=== PATIENT | male | born 1960 | race Caucasian/White ===

== ENCOUNTER → 2023-12-25 | Outpatient (CLI) | payer BC ==
--- NOTE | 2023-12-26 17:42 | US ---
EXAMINATION TYPE: US abdomen complete DATE OF EXAM: 12/25/2023 COMPARISON: NONE CLINICAL INDICATION: Male, 63 years old with history of R10.11 RIGHT UPPER QUADRANT PAIN; RUQ pain. TECHNIQUE: Multiple sonographic images of the abdomen are obtained. FINDINGS: EXAM MEASUREMENTS: Liver Length: 18.0 cm Gallbladder: Unable to visualize CBD: Obscured Spleen: 11.5 cm Right Kidney: 13.2 x 6.7 x 5.0 cm Left Kidney: 13.0 x 6.2 x 6.8 cm [employer]GE[employer] NOTES: *Exam is extremely limited and technically difficult due to gas and patient body h abitus. Pancreas: Obscured Liver: Measures enlarged. Increased echogenicity and attenuation. Limitations. Gallbladder: Unable to visualize by ultrasound. Evidence for sonographic Sanchez's sign: No CBD: Obscured Spleen: No abnormalities seen. Right Kidney: Slightly prominent in size. No hydronephrosis or masses seen Left Kidney: Slightly prominent in size. No hydronephrosis or masses seen Upper IVC: Appears wnl Abd Aorta: *Proximal segment appears ectatic measuring 2.7 cm AP. Mid-distal aorta and iliacs were o bscured. IMPRESSION: 1. Significant exam limitations. Unable to adequately assess the pancreas, gallbladder, or bile duct. 2. Mild hepatomegaly at 18.0 cm with at least moderate hepatic steatosis.
== END | disposition home or self-care (01) ==
LOC: RADUSWWP 06:55
PROVIDERS: ATTEND Family Medicine
DX: K76.0 Fatty (change of) liver, not elsewhere classified (principal); R16.0 Hepatomegaly, not elsewhere classified; R11.2 Nausea with vomiting, unspecified
CPT/HCPCS: 76700

== ENCOUNTER 2023-12-26 16:12 | Observation (INO) | payer BC ==
--- NOTE | 2023-12-26 16:55 | ED ---
General Adult HPI - General Chief complaint: Abdominal Pain Stated complaint: Abd pain Time Seen by Provider: 12/26/23 16:41 Source: patient, RN notes reviewed Mode of arrival: ambulatory Limitations: no limitations - History of Present Illness Initial comments: 63-year-old male with a past medical history of hypertension presents to the emergency department for evaluation of right upper quadrant abdominal pain. He states that this has been on and off for the past 5 months has become more consistent over the past 24 hours. He states that he has had 5 episodes of pain ranging in duration from 1 to 4 hours over the past 24 hours. He reports that the pain is mostly in his right upper quadrant also radiates to his mid abdomen and back. He states that he has seen his primary care provider for this and there is concern for gallstones. He had an outpatient ultrasound performed yesterday that he does not have the results yet. He does admit to nausea with vomiting, diarrhea. Denies fever, chills. Denies alcohol consumption. He is on blood thinners for history of A-fib - Related Data Home Medications Medication Instructions Recorded Confirmed Apixaban [Eliquis] 5 mg PO BID 12/26/23 12/26/23 Metoprolol Succinate (ER) [Toprol 50 mg PO BID 12/26/23 12/26/23 Xl] [place]-3/Dha/Epa/Fish Oil [Fish Oil 1 cap PO BID 12/26/23 12/26/23 1,000 mg Softgel] ramipriL [Altace] 2.5 mg PO HS 12/26/23 12/26/23 Allergies Allergy/AdvReac Type Severity Reaction Status Date / Time No Known Allergies Allergy Verified 12/26/23 19:38 Review of Systems ROS Statement: Those systems with pertinent positive or pertinent negative responses have been documented in the HPI. ROS Other: All systems not noted in ROS Statement are negative. Past Medical History Past Medical History: Hypertension History of Any Multi-Drug Resistant Organisms: None Reported Past Surgical History: Ablation Past Psychological History: No Psychological Hx Reported Smoking Status: Never smoker Past Alcohol Use History: None Reported Past Drug Use History: None Reported General Exam Limitations: no limitations General appearance: alert, in no apparent distress Head exam: Present: atraumatic, normocephalic, normal inspection Eye exam: Present: normal appearance, PERRL, EOMI. Absent: scleral icterus, conjunctival injection, periorbital swelling Respiratory exam: Present: normal lung sounds bilaterally. Absent: respiratory distress, wheezes, rales, rhonchi, stridor Cardiovascular Exam: Present: regular rate, normal rhythm, normal heart sounds. Absent: systolic murmur, diastolic murmur, rubs, gallop, clicks GI/Abdominal exam: Present: soft, tenderness (RUQ, epigastric), normal bowel sounds. Absent: distended, guarding, rebound, rigid Extremities exam: Present: normal inspection, full ROM, normal capillary refill. Absent: tenderness, pedal edema, joint swelling, calf tenderness Neurological exam: Present: alert, oriented X3 Psychiatric exam: Present: normal affect, normal mood Skin exam: Present: warm, dry, intact, normal color. Absent: rash Course Vital Signs 12/26/23 16:18 Temperature 98.5 F Pulse Rate 87 Respiratory 18 Rate Blood Pressure 195/86 O2 Sat by Pulse 95 Oximetry Medical Decision Making - Medical Decision Making Was pt. sent in by a medical professional or institution (, PA, EQUIPMENT TESTER, urgent care, hospital, or shelter...) When possible be specific @ -No Did you speak to anyone other than the patient for history (EMS, parent, family, police, friend...)? What history was obtained from this source @ -No Did you review nursing and triage notes (agree or disagree)? Why? @ -I reviewed and agree with nursing and triage notes Were old charts reviewed (outside hosp., previous admission, EMS record, old EKG, old radiological studies, urgent care reports/EKG's, shelter records)? Report findings @ -Outpatient ultrasound from yesterday reviewed. Significant limitation due to body habitus Differential Diagnosis (chest pain, altered mental status, abdominal pain women, abdominal pain men, vaginal bleeding, weakness, fever, dyspnea, syncope, headache, dizziness, GI bleed, back pain, seizure, CVA, palpatations, mental health, musculoskeletal)? @ -Differential Abdominal Pain Men: Appendicitis, cholecystitis, diverticulosis, ischemic bowel, pancreatitis, hepatitis, UTI, gastroenteritis, AAA, incarcerated hernia, bowel obstruction, constipation, inflammatory bowel, hepatitis, peptic ulcer disease, splenic infarction, perforated viscus, testicular torsion, this is not meant to be an all-inclusive list EKG interpreted by me (3pts min.). @ -EKG at 1824. Rate 84, MO 194, QRS 102, QTQTc [id number] X-rays interpreted by me (1pt min.). @ -None done CT interpreted by me (1pt min.). @ -CT abdomen pelvis shows acute pancreatitis, moderate without complication U/S interpreted by me (1pt. min.). @ -None done What testing was considered but not performed or refused? (CT, X-rays, U/S, labs)? Why? @ -None What meds were considered but not given or refused? Why? @ -None Did you discuss the management of the patient with other professionals (professionals i.e. DrParth, PA, EQUIPMENT TESTER, lab, RT, psych nurse, clinical social work aide, machinery mechanic, teacher, chief school finance officer, case reviewer)? Give summary @ -Case discussed with [facility] who is accepting of the admission Was smoking cessation discussed for >3mins.? @ -No Was critical care preformed (if so, how long)? @ -No Were there social determinants of health that impacted care today? How? (Homelessness, low income, unemployed, alcoholism, drug addiction, transportation, low edu. Level, literacy, decrease access to med. care, care home, rehab)? @ -No Was there de-escalation of care discussed even if they declined (Discuss DNR or withdrawal of care, Hospice)? DNR status @ -No What co-morbidities impacted this encounter? (DM, HTN, Smoking, COPD, CAD, Cancer, CVA, ARF, Chemo, Hep., AIDS, mental health diagnosis, sleep apnea, morbid obesity)? @ -None Was patient admitted / discharged? Hospital course, mention meds given and route, prescriptions, significant lab abnormalities, going to OR and other pertinent info. @ -Admitted. Patient presented to the emergency department for evaluation of right upper quadrant, epigastric abdominal pain. He states that for the past 24 hours this has gotten significantly worse. Laboratory studies obtained. Patient has significant elevation in lipase, amylase, AST, ALT. Bilirubin 4.0. CT scan performed shows acute pancreatitis, moderate without complication. Patient provided fluids in ED along with medication for pain and nausea control. Patient will be admitted for acute pancreatitis with GI consultation. Case discussed with [facility] who is accepting of the admission. Case discussed with Dr. Boothe Undiagnosed new problem with uncertain prognosis? @ -No Drug Therapy requiring intensive monitoring for toxicity (Heparin, Nitro, Insulin, Cardizem)? @ -No Were any procedures done? @ -No Diagnosis/symptom? @ -Acute pancreatitis Acute, or Chronic, or Acute on Chronic? @ -acute Uncomplicated (without systemic symptoms) or Complicated (systemic symptoms)? @ -uncomplicated Side effects of treatment? @ -No Exacerbation, Progression, or Severe Exacerbation? @ -No Poses a threat to life or bodily function? How? (Chest pain, [place], [place], pneumonia, PE, COPD, DKA, ARF, appy, cholecystitis, CVA, Diverticulitis, Homicidal, Suicidal, threat to staff... and all critical care pts) @ -No - Lab Data Result diagrams: 12/26/23 17:50 12/26/23 17:50 Lab Results 12/26/23 12/26/23 12/26/23 Range/Units 17:50 17:50 17:53 WBC 7.8 (3.8-10.6) k/uL RBC 5.17 (4.30-5.90) m/uL Hgb 15.5 (13.0-17.5) gm/dL Hct 48.6 (39.0-53.0) % MCV 94.0 (80.0-100.0) fL MCH 30.0 (25.0-35.0) pg MCHC 31.9 (31.0-37.0) g/dL RDW 13.2 (11.5-15.5) % Plt Count 182 (150-450) k/uL MPV 7.1 Neutrophils % 79 % Lymphocytes % 14 % Monocytes % 6 % Eosinophils % 1 % Basophils % 0 % Neutrophils # 6.1 (1.3-7.7) k/uL Lymphocytes # 1.1 (1.0-4.8) k/uL Monocytes # 0.5 (0-1.0) k/uL Eosinophils # 0.1 (0-0.7) k/uL Basophils # 0.0 (0-0.2) k/uL Sodium 137 (137-145) mmol/L Potassium 4.8 (3.5-5.1) mmol/L Chloride 103 (98-107) mmol/L Carbon Dioxide 26 (22-30) mmol/L Anion Gap 8 mmol/L BUN 19 (9-20) mg/dL Creatinine 0.97 (0.66-1.25) mg/dL Est GFR (CKD-EPI)AfAm >90 (>60 ml/min/1.73 sqM) Est GFR (CKD-EPI)NonAf 84 (>60 ml/min/1.73 sqM) Glucose 176 H (74-99) mg/dL Calcium 9.5 (8.4-10.2) mg/dL Total Bilirubin 4.0 H (0.2-1.3) mg/dL AST 744 H (17-59) U/L ALT 795 H (4-49) U/L Alkaline Phosphatase 120 (38-126) U/L Total Protein 7.7 (6.3-8.2) g/dL Albumin 4.6 (3.5-5.0) g/dL Amylase 3348 H* (30-110) U/L Lipase >10433 H (23-300) U/L Urine Color Yellow Urine Appearance Clear (Clear) Urine pH 5.5 (5.0-8.0) Ur Specific [place] 1.012 (1.001-1.035) Urine Protein Negative (Negative) Urine Glucose (UA) Negative (Negative) Urine Ketones Negative (Negative) Urine Blood Negative (Negative) Urine Nitrite Negative (Negative) Urine Bilirubin 1+ H (Negative) Urine Urobilinogen <2.0 (<2.0) mg/dL Ur Leukocyte Esterase Negative (Negative) Disposition Clinical Impression: Pancreatitis Disposition: ADMITTED IP TO THIS [facility] Condition: Stable Is patient prescribed a controlled substance at d/c from ED?: No Referrals: Sukhwinder Pettit DO [Primary Care Provider] - 1-2 days
[2023-12-26] MEDS: KETOROLAC 15 MG/ML 1 ML VIAL IVP STA (17:43)
[2023-12-26] MEDS: MORPHINE SULFATE 4 MG/ML SYRINGE IVP STA (17:44)
[2023-12-26] MEDS: ONDANSETRON 4 MG/2 ML VIAL IVP STA (17:47)
[2023-12-26] MEDS: SODIUM CHLORIDE 0.9% 1,000 ML IV ONE ×2 (17:47→21:17)
[2023-12-26 18:01] LABS: Basophils % (A) 0 %; Eosinophils # (A) 0.1 k/uL (0-0.7); Eosinophils % (A) 1 %; HCT 48.6 % (39.0-53.0); HGB 15.5 gm/dL (13.0-17.5); Lymphocytes # (A) 1.1 k/uL (1.0-4.8); Lymphocytes % (A) 14 %; MCHC 31.9 g/dL (31.0-37.0); Mean Platelet Volume 7.1; Monocytes # (A) 0.5 k/uL (0-1.0); Monocytes % (A) 6 %; Neutrophils # (A) 6.1 k/uL (1.3-7.7); Neutrophils % (A) 79 %; Platelet Count 182 k/uL (150-450); RBC 5.17 m/uL (4.30-5.90); RDW 13.2 % (11.5-15.5); WBC 7.8 k/uL (3.8-10.6)
[2023-12-26 18:03] LABS: Appearance,Urine Clear (Clear); Bilirubin,Urine 1+ (Negative); Blood,Urine Negative (Negative); Color,Urine Yellow; Glucose,Urine (UA) Negative (Negative); Ketones,Urine Negative (Negative); Leukocyte Esterase,Urine Negative (Negative); Nitrite,Urine Negative (Negative); PH, Urine 5.5 (5.0-8.0); Protein,Urine Negative (Negative); Specific Gravity,Urine 1.012 (1.001-1.035); Urobilinogen,Urine <2.0 mg/dL (<2.0)
[2023-12-26 18:11] LABS: African American GFR (CKD) >90 (>60 ml/min/1.73 sqM); Albumin 4.6 g/dL (3.5-5.0); Alkaline Phosphatase 120 U/L (38-126); Anion Gap 8 mmol/L; Blood Urea Nitrogen 19 mg/dL (9-20); Calcium 9.5 mg/dL (8.4-10.2); Carbon Dioxide 26 mmol/L (22-30); Chloride 103 mmol/L (98-107); Glucose 176 mg/dL (74-99); Non-African American GFR(CKD) 84 (>60 ml/min/1.73 sqM); Potassium 4.8 mmol/L (3.5-5.1); Sodium 137 mmol/L (137-145); Total Protein 7.7 g/dL (6.3-8.2)
[2023-12-26 18:44] LABS: ALT 795 U/L (4-49); AST 744 U/L (17-59); Lipase >20000 U/L (23-300)
[2023-12-26 18:46] LABS: Amylase 3348 U/L (30-110)
--- NOTE | 2023-12-26 19:00 | CT ---
EXAMINATION TYPE: CT abdomen pelvis w con DATE OF EXAM: 12/26/2023 HISTORY: generalized abd pain. CT DLP: 4295 mGycm, Automated Exposure Control for Dose Reduction was Utilized. CONTRAST: CT scan of the abdomen and pelvis is performed with oral and with IV Contrast, patient inje cted with 100ml mL of Isovue 300. COMPARISON: None FINDINGS: LUNG BASES: Right lower lobe 7.5 cm solid pulmonary nodule noted, which can be further characterized with six-month follow-up CT chest. Coronary calcifications noted. LIVER: No significant abnormality is appreciated. BILIARY: No intrahepatic or extrahepatic ductal dilation. Gallbladder has normal appearance. No calci fied cholelithiasis. PANCREAS: There is moderate indistinctness and inflammatory change throughout and surrounding the ent vicky pancreas parenchyma and bilateral anterior pararenal space and associated significant mural thick ening and indistinctness of the second/third portions of the duodenum. The pancreatic parenchyma appe ars to contrast enhance homogeneously. There are no abnormal fluid or gas collections. The portal spl enic venous system is widely patent. There are no pancreatic calcifications. There is no pancreatic d uctal dilation. SPLEEN: No significant abnormality is seen. ADRENALS: No significant abnormality is seen. KIDNEYS: No significant abnormality is seen. BOWEL: No bowel dilation or inflammatory change other than the duodenal findings detailed above. ANTERIOR ABDOMINAL PELVIC WALL: There is a 7 cm midline omental herniation in the supraumbilical posi tion; no bowel loops within. PROSTATE/SEMINAL VESICLES: No gross abnormality seen. LYMPH NODES: Borderline dilated lymph nodes in the gastrohepatic and periportal positions. No pelvic adenopathy. OSSEOUS STRUCTURES: No significant abnormality is seen. OTHER: No significant additional abnormality is seen. IMPRESSION: Acute pancreatitis, moderate degree with no pancreatitis complications. Eventual imaging follow-up to ensure resolution of the findings. Right lower lobe 7.5 mm pulmonary nodule. Coronary calcifications.
[2023-12-26] MEDS ORDERED: ACETAMINOPHEN TAB 325 MG TAB PO PRN (19:28)
[2023-12-26] MEDS ORDERED: IBUPROFEN 400 MG TAB PO PRN (19:28)
[2023-12-26] MEDS ORDERED: NALOXONE 0.4 MG/ML 1 ML VIAL IV PRN (19:28)
[2023-12-26] MEDS: HYDROmorphone 1 MG/ML 1 ML SYRINGE IVP STA (19:49)
[2023-12-26] MEDS: SODIUM CHLORIDE 0.9% 1,000 ML IV SCH (21:18)
[2023-12-26] MEDS: METOPROLOL SUCCINATE (ER) 50 MG TAB.ER.24H PO SCH (21:24)
[2023-12-26] MEDS: APIXABAN 5 MG TAB PO SCH (21:25)
[2023-12-26] MEDS: lisinopriL 10 MG TAB PO SCH (21:26)
[2023-12-26] MEDS: KETOROLAC 15 MG/ML 1 ML VIAL IVP PRN (21:28)
[2023-12-26] MEDS: HYDROmorphone 0.5 MG/0.5 ML SYRINGE IVP PRN (23:12)
--- NOTE | 2023-12-27 03:33 | P.HPIM ---
History of Present Illness H&P Date: 12/26/23 Chief Complaint: Abdominal pain 64-year-old male with hypertension, history of A-fib status post ablation Patient coming in for evaluation of severe abdominal pain he reports occasional episodes of abdominal pain over the past 5 to 6 months which she describes as episodes of short-lived pain that happens all of a sudden epigastric in nature then goes away after an hour or so and then with take weeks or sometimes months before he gets another episode. However since last night he had a prolonged episodes of abdominal pain lasted for 5 to 6 hours until he fell asleep he described the pain as severe epigastric radiating to the right upper quadrant and to his back associated with retching. Then he woke up this morning and had another episodes of that pain that lasted for couple hours then had another episodes in the afternoon and then after the third or fourth episode around 230-3 PM for which she decided that he is coming to the hospital for evaluation these episodes are not associated with any fevers chills diarrhea however he does report nausea and vomiting but no bleeding He denies any history of pancreatitis denies any alcohol abuse denies any history of gallstones. 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 All other systems were reviewed and are negative on exam Constitutional: No acute distress, conversant, pleasant Eyes: HENT of scleral jaundice, moist conjunctiva, Pupils equal round reactive to light ENMT: NC/AT Oropharynx clear, no erythema, or exudates Neck: Supple, no masses, or JVD No carotid bruits No thyromegaly Lungs: Clear to auscultation Clear to percussion Normal respiratory effort, no accessory muscle use Cardiovascular: Heart regular in rate and rhythm, No murmurs, gallops, or rubs No peripheral edema Abdominal: Soft Tenderness to deep palpation of the epigastric and right upper quadrant, no guarding, rebound or rigidity Abdomen moving with respiration Normoactive bowel sounds Extremities: No digital cyanosis No clubbing Pedal pulses intact and symmetrical Radial pulses intact and symmetrical No calf tenderness Psychiatric: Alert and oriented to person, place and time Appropriate affect fair judgement Neuro Muscles Strength 5/5 in all 4 extremities Sensation to light touch grossly present throughout Cranial nerves II-XII grossly intact Past Medical History Past Medical History: Atrial Fibrillation, Deep Vein Thrombosis (DVT), Hypertension, Pulmonary Embolus (PE), Sleep Apnea/CPAP/BIPAP History of Any Multi-Drug Resistant Organisms: None Reported Past Surgical History: Ablation Additional Past Surgical History / Comment(s): fistula repair Past Anesthesia/Blood Transfusion Reactions: No Reported Reaction Past Psychological History: No Psychological Hx Reported Smoking Status: Never smoker Past Alcohol Use History: None Reported Past Drug Use History: None Reported Medications and Allergies Home Medications Medication Instructions Recorded Confirmed Type Apixaban [Eliquis] 5 mg PO BID 12/26/23 12/26/23 History Metoprolol Succinate (ER) [Toprol 50 mg PO BID 12/26/23 12/26/23 History Xl] [place]-3/Dha/Epa/Fish Oil [Fish Oil 1 cap PO BID 12/26/23 12/26/23 History 1,000 mg Softgel] ramipriL [Altace] 2.5 mg PO HS 12/26/23 12/26/23 History Allergies Allergy/AdvReac Type Severity Reaction Status Date / Time No Known Allergies Allergy Verified 12/26/23 19:38 Physical Exam Vitals: Vital Signs Temp Pulse Pulse Resp BP BP Pulse Ox 12/27/23 02:27 97.8 F 69 16 152/89 97 12/26/23 22:15 79 18 148/88 95 12/26/23 21:12 81 18 159/102 96 12/26/23 16:18 98.5 F 87 18 195/86 95 Intake and Output 12/26/23 12/26/23 12/27/23 14:59 22:59 06:59 Other: Weight 170.097 kg Results CBC & Chem 7: 12/26/23 17:50 12/26/23 17:50 Labs: Abnormal Lab Results - Last 24 Hours (Table) 12/26/23 12/26/23 Range/Units 17:50 17:53 Glucose 176 H (74-99) mg/dL Total Bilirubin 4.0 H (0.2-1.3) mg/dL AST 744 H (17-59) U/L ALT 795 H (4-49) U/L Amylase 3348 H* (30-110) U/L Lipase >91437 H (23-300) U/L Urine Bilirubin 1+ H (Negative) Assessment and Plan Assessment: 64-year-old male with hypertension history of venous thromboembolism on Eliquis coming in for evaluation of severe abdominal pain epigastric radiating to the right upper quadrant and his back blood work revealed elevated lipase I discussed case with ED doctor and accepted the admission for acute pancreatitis and elevated liver enzymes with anticipated length of stay more than 2 midnights Acute pancreatitis Elevated liver enzymes suspected passing a stone GI consultation for possible MRCP/ERCP N.p.o. Aggressive IV fluid hydration status post 2 L boluses continue with 200 cc/h of normal saline Pain control with Dilaudid 1 mg every 3 hours as needed Zofran 4 mg IV push as needed every 8 hours In rare occasions ramipril could be a cause of pancreatitis which will be held for this admission Lipase more than 20,000 Total bilirubin 4 AST 744 [address] scan of the abdomen showed acute pancreatitis moderate degree with no pancreatitis complications, History of A-fib status post ablation History of venous thromboembolism recurrent Continue with Eliquis 5 mg twice daily Hypertension Continue with metoprolol Ramipril on hold Incidental finding of right lower lobe 7.5 mm pulmonary nodule Consider outpatient follow-up with pulmonary White count 7.8 hemoglobin 15.5 Sodium 137 potassium 4.8 BUN 20 creatinine 0.9 Full code DVT prophylaxis on Eliquis for history of venous thromboembolism
[2023-12-27 06:52] LABS: ALT 669 U/L (4-49); AST 440 U/L (17-59); African American GFR (CKD) >90 (>60 ml/min/1.73 sqM); Albumin 3.5 g/dL (3.5-5.0); Albumin/Globulin Ratio 1.4; Alkaline Phosphatase 95 U/L (38-126); Anion Gap 4 mmol/L; Blood Urea Nitrogen 19 mg/dL (9-20); Calcium 8.5 mg/dL (8.4-10.2); Carbon Dioxide 29 mmol/L (22-30); Chloride 106 mmol/L (98-107); Globulin 2.5 g/dL; Glucose 126 mg/dL (74-99); Non-African American GFR(CKD) >90 (>60 ml/min/1.73 sqM); Potassium 4.3 mmol/L (3.5-5.1); Sodium 139 mmol/L (137-145); Total Bilirubin 1.7 mg/dL (0.2-1.3)
[2023-12-27 07:44] LABS: Amylase 1140 U/L (30-110); Lipase 8575 U/L (23-300)
[2023-12-27 09:08] LABS: Basophils # (A) 0.04 X 10*3/uL (0.00-0.10); Basophils % (A) 0.5 %; Eosinophils # (A) 0.11 X 10*3/uL (0.04-0.35); Eosinophils % (A) 1.4 %; HCT 40.6 % (39.6-50.0); HGB 13.3 g/dL (13.0-17.0); Lymphocytes # (A) 1.34 X 10*3/uL (0.90-5.00); MCH 31.1 pg (27.0-32.0); MCHC 32.8 g/dL (32.0-37.0); MCV 94.9 FL (80.0-97.0); Mean Platelet Volume 9.6 FL (9.5-12.2); Monocytes # (A) 0.55 X 10*3/uL (0.20-1.00); NRBC Per 100 WBC 0 X 10*3/uL (0.00-0.01); Neutrophils # (A) 5.82 X 10*3/uL (1.80-7.70); Neutrophils % (A) 73.6 %; Platelet Count 139 X 10*3/uL (140-440); RBC 4.28 X 10*6/uL (4.40-5.60); RDW 13.2 % (11.5-14.5)
--- NOTE | 2023-12-27 10:56 | P.PN ---
Subjective Progress Note Date: 12/27/23 No new complaints today. Pain is well-controlled. Plans for MRCP. Gen: In NAD, non-toxic HEENT: normocephalic, atraumatic, hearing acuity is intant, mucous membranes moist CVS: perfusing all extremities well, no pitting edema, Respiratory: symmetric chest expansion, no accessory muscle use, GI: soft, NTTP, ND, : no suprapubic tenderness, no CVA tenderness MSK/Derm: no rashes, cyanosis Neuro: CN II-XII intact, no motor weakness, Psych: cooperative, euthymic mood, judgment and insight is intact Hospital course: 64-year-old male with hypertension history of venous thromboembolism on Eliquis coming in for evaluation of severe abdominal pain epigastric radiating to the right upper quadrant and his back. White count 7.8 hemoglobin 15.5 Sodium 137 potassium 4.8 BUN 20 creatinine 0.9 Lipase more than 20,000 Total bilirubin 4 AST 744 [address] scan of the abdomen showed acute pancreatitis moderate degree with no pancreatitis complications, Assessment/plan: Acute pancreatitis Elevated liver enzymes suspected passing a stone GI consultation MRCP/ERCP N.p.o. Aggressive IV fluid hydration status post 2 L boluses continue with 200 cc/h of normal saline Pain control with Dilaudid 1 mg every 3 hours as needed Zofran 4 mg IV push as needed every 8 hours In rare occasions ramipril could be a cause of pancreatitis which will be held for this admission History of A-fib status post ablation History of venous thromboembolism recurrent Continue with Eliquis 5 mg twice daily Hypertension Continue with metoprolol Ramipril on hold Incidental finding of right lower lobe 7.5 mm pulmonary nodule Consider outpatient follow-up with pulmonary Full code DVT prophylaxis on Eliquis for history of venous thromboembolism Objective - Vital Signs Vital signs: Vital Signs Temp 98.4 F 12/27/23 07:09 Pulse 70 12/27/23 07:09 Resp 18 12/27/23 07:09 BP 142/80 12/27/23 07:09 Pulse Ox 95 12/27/23 07:09 FiO2 Intake & Output 12/26/23 12/27/23 12/27/23 18:59 06:59 18:59 Weight 170.097 kg 170.097 kg Other: # Voids 3 - Labs CBC & Chem 7: 12/27/23 03:42 12/27/23 03:42 Labs: Abnormal Lab Results - Last 24 Hours (Table) 12/26/23 12/26/23 12/27/23 Range/Units 17:50 17:53 03:42 RBC 4.28 L (4.40-5.60) X 10*6/uL Plt Count 139 L (140-440) X 10*3/uL Glucose 176 H (74-99) mg/dL Total Bilirubin 4.0 H (0.2-1.3) mg/dL AST 744 H (17-59) U/L ALT 795 H (4-49) U/L Total Protein (6.3-8.2) g/dL Amylase 3348 H* (30-110) U/L Lipase >63645 H (23-300) U/L Urine Bilirubin 1+ H (Negative) 12/27/23 12/27/23 Range/Units 03:42 06:13 RBC (4.40-5.60) X 10*6/uL Plt Count (140-440) X 10*3/uL Glucose 126 H (74-99) mg/dL Total Bilirubin 1.7 H (0.2-1.3) mg/dL AST 440 H (17-59) U/L ALT 669 H (4-49) U/L Total Protein 6.0 L (6.3-8.2) g/dL Amylase 1140 H* (30-110) U/L Lipase 8575 H (23-300) U/L Urine Bilirubin (Negative)
--- NOTE | 2023-12-27 11:39 | P.CONS ---
History of Present Illness - Reason for Consult Consult date: 12/27/23 Pancreatitis Requesting physician: Vidhya Lentz - Chief Complaint Abdominal pain - History of Present Illness This is a pleasant 63-year-old male who presented to the emergency department yesterday afternoon with complaints of abdominal pain mostly in the epigastric region and associated with nausea and vomiting. He has a past medical history including atrial fibrillation on Eliquis, obesity, and hypertension. He states pain started 2 nights ago lasted about 5 hours and then improved. Came back yesterday morning but again went away and then yesterday afternoon around 2 PM pain came back and was severe. He states that this has happened to him in the past and he has seen his primary care physician regarding it who had ordered an outpatient ultrasound thinking it could be related to the gallbladder. He denies any previous diagnosis of pancreatitis and no alcohol abuse. Blood work was completed with elevated amylase and lipase, 3348 and greater than 20,000 respectively, as well as elevated LFTs. He had a CT of the abdomen pelvis reporting pancreatic inflammation consistent with pancreatitis. No significant abnormality of the liver and no intrahepatic or extrahepatic ductal dilation gallbladder appeared normal. With no calcified cholelithiasis. Outpatient abdominal ultrasound nondiagnostic. Patient currently states abdominal pain is much better, he has no nausea or vomiting. States he feels like he has to have a bowel movement but he has been unable to go. He denies any fevers or chills, no shortness of breath or chest pain. He has been afebrile. Repeat labs today WBC 7.9 hemoglobin 13 platelet count 139,000 total bilirubin 1.7 AST 440 ALT 669 alkaline phosphatase 95 amylase 1140 lipase 8575 Review of Systems REVIEW OF SYSTEMS: CARDIOPULMONARY: No chest pain or shortness of breath. Gastrointestinal: Abdominal pain associated with nausea and vomiting. No hematemesis, coffee-ground emesis. No rectal bleeding, or melena. GENITOURINARY: No dysuria or hematuria. MUSCULOSKELETAL: Reports normal range of motion. SKIN: No rashes. No jaundice. ENDOCRINE: No chills, fevers. No excessive weight gain or loss. No polydipsia or polyuria. PSYCHIATRIC: Unremarkable. NEUROLOGY: No change in mental status. Denies dizziness, headache. ENT: Vision unremarkable. CONSTITUTIONAL: No recent weight loss. No fever, chills, night sweats. Past Medical History Past Medical History: Atrial Fibrillation, Deep Vein Thrombosis (DVT), Hypertension, Pulmonary Embolus (PE), Sleep Apnea/CPAP/BIPAP History of Any Multi-Drug Resistant Organisms: None Reported Past Surgical History: Ablation Additional Past Surgical History / Comment(s): fistula repair Past Anesthesia/Blood Transfusion Reactions: No Reported Reaction Past Psychological History: No Psychological Hx Reported Smoking Status: Never smoker Past Alcohol Use History: None Reported Past Drug Use History: None Reported Medications and Allergies Home Medications Medication Instructions Recorded Confirmed Type Apixaban [Eliquis] 5 mg PO BID 12/26/23 12/26/23 History Metoprolol Succinate (ER) [Toprol 50 mg PO BID 12/26/23 12/26/23 History Xl] [place]-3/Dha/Epa/Fish Oil [Fish Oil 1 cap PO BID 12/26/23 12/26/23 History 1,000 mg Softgel] ramipriL [Altace] 2.5 mg PO HS 12/26/23 12/26/23 History Allergies Allergy/AdvReac Type Severity Reaction Status Date / Time No Known Allergies Allergy Verified 12/26/23 19:38 Physical Exam Vitals: Vital Signs Temp Pulse Pulse Resp BP BP Pulse Ox 12/27/23 02:27 97.8 F 69 16 152/89 97 12/26/23 22:15 79 18 148/88 95 12/26/23 21:12 81 18 159/102 96 12/26/23 16:18 98.5 F 87 18 195/86 95 Intake and Output 12/26/23 12/27/23 12/27/23 22:59 06:59 14:59 Other: # Voids 3 Weight 170.097 kg General appearance: The patient is alert, oriented, appears in no acute distress. HET: Head is normocephalic and atraumatic. Conjunctiva pink. Sclera anicteric. Neck: Supple without lymphadenopathy. Trachea midline. Heart: Regular. Lungs: Equal expansion, normal respiratory effort. Abdomen: Soft, mild epigastric tenderness, nondistended. Morbidly obese. Skin: No rashes. No jaundice. Extremities: Normal skin color and turgor. No pedal edema. Neurological: No focal deficits. Alert and oriented x3. Results CBC & Chem 7: 12/27/23 03:42 12/27/23 03:42 Labs: Abnormal Lab Results - Last 24 Hours (Table) 12/26/23 12/26/23 12/27/23 Range/Units 17:50 17:53 03:42 Glucose 176 H 126 H (74-99) mg/dL Total Bilirubin 4.0 H 1.7 H (0.2-1.3) mg/dL AST 744 H 440 H (17-59) U/L ALT 795 H 669 H (4-49) U/L Total Protein 6.0 L (6.3-8.2) g/dL Amylase 3348 H* (30-110) U/L Lipase >18413 H (23-300) U/L Urine Bilirubin 1+ H (Negative) Comments: CT abdomen pelvis with contrast reports acute pancreatitis, moderate degree with no pancreatitis complications. Eventual imaging following up to ensure resolution of findings. Right lower lobe 7.5 mm pulmonary nodule. Coronary calcification. Outpatient abdominal ultrasound 12/25/2023 reports significant exam limitations. Unable to adequately assess the pancreas, gallbladder or bile duct. Mild hepatomegaly at 18.0 cm with at least moderate hepatic steatosis. Assessment and Plan (1) Acute pancreatitis Narrative/Plan: 63-year-old male presenting with abdominal pain that has been intermittent ongoing over the last several months becoming much worse over the last couple days duration. Pain was associated with nausea and vomiting and he presented for further evaluation with findings of elevated pancreatic enzymes as well as LFTs. CT was consistent with acute pancreatitis without any CT evidence of gallstones or CBD dilation. Unclear etiology, no history of alcohol abuse and no recent new medications. Patient was following with his PCP for outpatient workup for possible gallbladder disease. Ultrasound was none diagnostic. Recommend MRCP for further evaluation and to rule out CBD obstruction. Continue with supportive care. Current Visit: Yes Status: Acute Code(s): K85.90 - ACUTE PANCREATITIS WITHOUT NECROSIS OR INFECTION, UNSP SNOMED Code(s): 872835932 (2) Elevated LFTs Current Visit: Yes Status: Acute Code(s): R79.89 - OTHER SPECIFIED ABNORMAL FINDINGS OF BLOOD CHEMISTRY SNOMED Code(s): 338042241 (3) Morbid obesity with BMI of 50.0-59.9, adult Current Visit: Yes Status: Acute Code(s): E66.01 - MORBID (SEVERE) OBESITY DUE TO EXCESS CALORIES; Z68.43 - BODY MASS INDEX [BMI] 50.0-59.9, ADULT SNOMED Code(s): 587862492 (4) Atrial fibrillation Current Visit: Yes Status: Acute Code(s): I48.91 - UNSPECIFIED ATRIAL FIBRILLATION SNOMED Code(s): 88471135 (5) Hypertension Current Visit: Yes Status: Acute Code(s): I10 - ESSENTIAL (PRIMARY) HYPERTENSION SNOMED Code(s): 92583964 Plan: 1. Continue symptomatic and supportive care 2. Antiemetics as needed 3. Pain medication as needed 4. Aggressive IV hydration 5. Patient may start clear liquid diet after MRCP 6. MRCP ordered 7. Encourage ambulation 8. Further recommendations forthcoming based on MRCP results. Thank you for allowing us to participate in the care of the patient, the GI service will sign off, gastroenterology will not be available at the hospital this weekend. We will return on 12/30/2023. If further evaluation by gastroenterology is required the patient will need transfer as per the primary team's discretion. Dr. Manolo Mcwilliams I agree with the dictator's note, documented as a scribe by Sandee Callejas.
--- NOTE | 2023-12-27 15:34 | MR ---
EXAMINATION TYPE: MR MRCP DATE OF EXAM: 12/27/2023 1:21 PM CLINICAL INDICATION:Male, 63 years old with history of pancreatitis, rule out cbd stone; PHH, Pancrea titis, evaluate for CBD stone. COMPARISON: 12/26/2023 TECHNIQUE: Multi planar, T2-weighted imaging with and without fat saturation and chemical shift imag ing was performed of the abdomen. Then, heavily T2 weighted imaging (half-Fourier acquisition single- shot turbo spin-echo) was utilized in order to study the biliary system. Maximum intensity projectio n images were reconstructed from the original data of the biliary tree. 3D images were created on [employer] work station. No Gadolinium given. FINDINGS: Lower Thorax: No evidence for acute process. MRCP: * The intrahepatic ducts have a normal appearance. * The common hepatic duct measures 6 mm in size. * The common bile duct at the level of the pancreatic head measures 5 mm in size. * The pancreatic duct is normal. * The gallbladder demonstrating layering gallstones. Phelps within normal limits for thickness. Abdomen: Liver: No evidence for hepatic steatosis or cirrhosis. Scattered high T2 signal cysts are seen throug hout the liver. Pancreas: Extremely limited exam due to patient body habitus and poor [id number] ratio. High T2 signal edema seen around the pancreas is poorly visualized from prior CT. Spleen: Normal for size. Adrenal glands: Unremarkable. Kidneys: No evidence for obstructive uropathy. No suspicious renal masses. Stomach and Bowel: No evidence for bowel wall thickening or evidence for obstruction. Retroperitoneum/Peritoneum: No evidence of pneumoperitoneum or free fluid. Vasculature: No aortic aneurysm. Musculoskeletal: The osseous structures appear intact. Lymph Nodes: No gross evidence for lymphadenopathy. Abdominal wall: Unremarkable. IMPRESSION: Extremely limited exam due to patient body habitus and poor rhjygr-jf-[id number] ratio. The pancreas is po tatyana visualized due to shadowing throughout the mid abdomen. 1. Tiny stone in the distal common bile duct is not entirely excluded given poor visualization. The common hepatic and common bile duct is not dilated. 2. Cholelithiasis. 3. Right hepatic simple appearing cyst. 4. Streaky edema around the pancreas poorly visualized compatible with provided history of pancreati tis.
[2023-12-27] MEDS: ONDANSETRON 4 MG/2 ML VIAL IVP PRN (16:17)
[2023-12-28] MEDS: polyethylene glycoL 3350 17 GM POWD.PACK PO STA (06:09)
[2023-12-28 08:01] LABS: HGB 12.6 gm/dL (13.0-17.5); MCH 31.8 pg (25.0-35.0); MCV 96.4 fL (80.0-100.0); Mean Platelet Volume 7.5; Platelet Count 129 k/uL (150-450); RBC 3.94 m/uL (4.30-5.90); RDW 13.3 % (11.5-15.5)
[2023-12-28 08:05] LABS: ALT 363 U/L (4-49); AST 110 U/L (17-59); African American GFR (CKD) >90 (>60 ml/min/1.73 sqM); Albumin 3.2 g/dL (3.5-5.0); Albumin/Globulin Ratio 1.3; Alkaline Phosphatase 81 U/L (38-126); Anion Gap -1 mmol/L; Blood Urea Nitrogen 16 mg/dL (9-20); Carbon Dioxide 28 mmol/L (22-30); Chloride 108 mmol/L (98-107); Globulin 2.5 g/dL; Glucose 136 mg/dL (74-99); Non-African American GFR(CKD) >90 (>60 ml/min/1.73 sqM); Potassium 4.8 mmol/L (3.5-5.1); Sodium 135 mmol/L (137-145); Total Bilirubin 1.4 mg/dL (0.2-1.3); Total Protein 5.7 g/dL (6.3-8.2)
--- NOTE | 2023-12-28 11:28 | P.PN ---
Subjective Progress Note Date: 12/28/23 No new complaints today. Pain is well-controlled. MRCP did not show ductal dilation. He is tolerating CLD, but is hesistant to advance today. Gen: In NAD, non-toxic HEENT: normocephalic, atraumatic, hearing acuity is intant, mucous membranes moist CVS: perfusing all extremities well, no pitting edema, Respiratory: symmetric chest expansion, no accessory muscle use, GI: soft, NTTP, ND, : no suprapubic tenderness, no CVA tenderness MSK/Derm: no rashes, cyanosis Neuro: CN II-XII intact, no motor weakness, Psych: cooperative, euthymic mood, judgment and insight is intact Hospital course: 64-year-old male with hypertension history of venous thromboembolism on Eliquis coming in for evaluation of severe abdominal pain epigastric radiating to the right upper quadrant and his back. White count 7.8 hemoglobin 15.5 Sodium 137 potassium 4.8 BUN 20 creatinine 0.9 Lipase more than 20,000 Total bilirubin 4 AST 744 [address] scan of the abdomen showed acute pancreatitis moderate degree with no pancreatitis complications, MRCP showed cholelithiasis, no ductal dilation Assessment/plan: Acute pancreatitis Elevated liver enzymes suspected passing a stone GI consultation MRCP/ERCP is appreciated, outpatient f/u with them on discharge CLD, advance as tolerated Aggressive IV fluid hydration status post 2 L boluses continue with 200 cc/h of normal saline Pain control with Dilaudid 1 mg every 3 hours as needed Zofran 4 mg IV push as needed every 8 hours In rare occasions ramipril could be a cause of pancreatitis which will be held for this admission History of A-fib status post ablation History of venous thromboembolism recurrent Continue with Eliquis 5 mg twice daily Hypertension Continue with metoprolol Ramipril on hold Incidental finding of right lower lobe 7.5 mm pulmonary nodule Consider outpatient follow-up with pulmonary Full code DVT prophylaxis on Eliquis for history of venous thromboembolism Objective - Vital Signs Vital signs: Vital Signs Temp 98.0 F 12/28/23 07:39 Pulse 69 12/28/23 07:39 Resp 17 12/28/23 07:39 BP 111/64 12/28/23 07:39 Pulse Ox 94 L 12/28/23 07:39 FiO2 Intake & Output 12/27/23 12/28/2324 18:59 06:59 18:59 Output Total 300 Balance -300 Output: Urine 300 - Labs CBC & Chem 7: 12/28/23 07:15 12/28/23 07:15 Labs: Abnormal Lab Results - Last 24 Hours (Table) 12/28/23 12/28/23 Range/Units 07:15 07:15 RBC 3.94 L (4.30-5.90) m/uL Hgb 12.6 L (13.0-17.5) gm/dL Hct 38.0 L (39.0-53.0) % Plt Count 129 L (150-450) k/uL Sodium 135 L (137-145) mmol/L Chloride 108 H (98-107) mmol/L Glucose 136 H (74-99) mg/dL Calcium 8.0 L (8.4-10.2) mg/dL Total Bilirubin 1.4 H (0.2-1.3) mg/dL AST 110 H (17-59) U/L ALT 363 H (4-49) U/L Total Protein 5.7 L (6.3-8.2) g/dL Albumin 3.2 L (3.5-5.0) g/dL
[2023-12-28] MEDS: HYDROmorphone 1 MG/ML 1 ML SYRINGE IVP PRN (15:23)
[2023-12-29 02:04] VITALS: RESP 17
[2023-12-29 07:46] VITALS: BP 139/70; PULSE 70; TEMP 98.1
[2023-12-29 09:24] LABS: Basophils # (A) 0.05 X 10*3/uL (0.00-0.10); Basophils % (A) 0.7 %; Eosinophils # (A) 0.25 X 10*3/uL (0.04-0.35); Eosinophils % (A) 3.7 %; HCT 37.5 % (39.6-50.0); Lymphocytes # (A) 1.63 X 10*3/uL (0.90-5.00); Lymphocytes % (A) 23.9 %; MCH 30.7 pg (27.0-32.0); MCV 95.9 FL (80.0-97.0); Mean Platelet Volume 9.6 FL (9.5-12.2); Monocytes # (A) 0.69 X 10*3/uL (0.20-1.00); Monocytes % (A) 10.1 %; NRBC Per 100 WBC 0 X 10*3/uL (0.00-0.01); Neutrophils # (A) 4.17 X 10*3/uL (1.80-7.70); Neutrophils % (A) 61.3 %; Platelet Count 127 X 10*3/uL (140-440); RBC 3.91 X 10*6/uL (4.40-5.60); WBC 6.81 X 10*3/uL (4.50-10.00)
[2023-12-29 09:50] LABS: BUN/Creat Ratio 10.78 Ratio (12.00-20.00); Blood Urea Nitrogen 9.7 mg/dL (9.0-27.0); Calcium 8.2 mg/dL (8.7-10.3); Carbon Dioxide 24.6 mmol/L (21.6-31.8); Chloride 106 mmol/L (96-109); Glucose 137 mg/dL (70-110); Magnesium 1.8 mg/dL (1.5-2.4); Potassium 4.6 mmol/L (3.5-5.5); Sodium 138 mmol/L (135-145)
[2023-12-29] MEDS ORDERED: POTASSIUM CHLORIDE ER 20 MEQ TAB.ER PO SCH (10:00)
--- NOTE | 2023-12-29 13:15 | P.DS ---
Providers Date of admission: 12/26/23 19:30 Expected date of discharge: 12/29/23 Attending physician: Boy Iverson MD Consults: 12/26/23 19:28 Consult Physician Routine Consulting Provider: Valerie Mcwilliams Consult Reason/Comments: pancreatitis, elevated LFTs Do you want consulting provider notified?: Yes Primary care physician: Sukhwinder Pettit Hospital Course: Acute pancreatitis History of A-fib status post ablation History of venous thromboembolism recurrent Hypertension Incidental finding of right lower lobe 7.5 mm pulmonary nodule Gen: In NAD, non-toxic HEENT: normocephalic, atraumatic, hearing acuity is intant, mucous membranes moist CVS: perfusing all extremities well, no pitting edema, Respiratory: symmetric chest expansion, no accessory muscle use, GI: soft, NTTP, ND, : no suprapubic tenderness, no CVA tenderness MSK/Derm: no rashes, cyanosis Neuro: CN II-XII intact, no motor weakness, Psych: cooperative, euthymic mood, judgment and insight is intact Hospital course: 64-year-old male with hypertension history of venous thromboembolism on Eliquis coming in for evaluation of severe abdominal pain epigastric radiating to the right upper quadrant and his back. Initial workup/treatment: White count 7.8 hemoglobin 15.5 Sodium 137 potassium 4.8 BUN 20 creatinine 0.9 Lipase more than 20,000 Total bilirubin 4 AST 744 ALT [address] scan of the abdomen showed acute pancreatitis moderate degree with no pancreatitis complications, Patient was started on IV fluids, Dilaudid as needed for pain control, Zofran as needed for nausea, and placed n.p.o. Follow up: Patient was seen by gastroenterology who recommended MRCP. MRCP showed cholelithiasis, no ductal dilation, possibility of a passed gallstone could not be excluded. Patient had improvement of his diet, pain with conservative treatment of pancreatitis. Patient was subsequently discharged home with instructions to follow-up with gastroenterology, as well as a general surgery referral for consideration of cholecystectomy. His ramipril was discontinued on discharge as in rare cases it may be a cause of pancreatitis, and he did not definitively have gallstone pancreatitis due to low quality imaging. I spent 35 minutes coordinating this discharge Patient Condition at Discharge: Good Plan - Discharge Summary New Discharge Prescriptions: New Ibuprofen [Motrin] 200 mg PO Q6HR PRN tab PRN Reason: Mild Pain Or Fever > 100.5 Acetaminophen Tab [Tylenol] 650 mg PO Q6HR PRN tab PRN Reason: Mild Pain Or Fever > 100.5 Continue Metoprolol Succinate (ER) [Toprol XL] 50 mg PO BID Apixaban [Eliquis] 5 mg PO BID [place]-3/Dha/Epa/Fish Oil [Fish Oil 1,000 mg Softgel] 1 cap PO BID Discontinued ramipriL [Altace] 2.5 mg PO HS Discharge Medication List Apixaban [Eliquis] 5 mg PO BID 12/26/23 [History] Metoprolol Succinate (ER) [Toprol XL] 50 mg PO BID 12/26/23 [History] [place]-3/Dha/Epa/Fish Oil [Fish Oil 1,000 mg Softgel] 1 cap PO BID 12/26/23 [History] Acetaminophen Tab [Tylenol] 650 mg PO Q6HR PRN tab 12/29/23 [Rx] Ibuprofen [Motrin] 200 mg PO Q6HR PRN tab 12/29/23 [Rx] Follow up Appointment(s)/Referral(s): Robbi Rae MD [Medical Doctor] - 1 Week Valerie Mcwilliams MD [STAFF PHYSICIAN] - 1 Week Sukhwinder Pettit DO [Primary Care Provider] - 1-2 days Discharge Disposition: HOME SELF-CARE
== END 2023-12-29 13:43 | disposition home or self-care (01) ==
LOC: EC 16:12 → INTOOBSV 19:30 → 4SSUR 19:30 → UNDODISIN 12-29 13:43
PROVIDERS: ADMIT Internal Medicine; ATTEND Internal Medicine
DX: K85.90 Acute pancreatitis without necrosis or infection, unspecified (principal); Z68.43 Body mass index [BMI] 50.0-59.9, adult; R79.89 Other specified abnormal findings of blood chemistry; I10 Essential (primary) hypertension; I48.91 Unspecified atrial fibrillation; G47.30 Sleep apnea, unspecified; E66.01 Morbid (severe) obesity due to excess calories; Z86.711 Personal history of pulmonary embolism; Z86.718 Personal history of other venous thrombosis and embolism; Z79.01 Long term (current) use of anticoagulants; Z79.899 Other long term (current) drug therapy
CPT/HCPCS: 96376 ×5; 96361 ×3; 96374; 96375; 99285; 36415; 93005; 80053 ×3; 80048; 82150 ×2; 83690 ×2; 83735; 85025 ×3; 85027; 81003; 74177; 74181; G0378 ×4; J2270; J2405 ×2; J1170 ×5; J1885 ×4; Q9967